=== PATIENT | female | born 1985 | race Two or more races ===

== ENCOUNTER 2016-10-02 08:35 | Emergency (ER) | payer MEDICAID, OTHER ==
[2016-10-02 08:50] VITALS: RESP 18; TEMP 97.7
--- NOTE | 2016-10-02 08:56 | EDPHY ---
H & P Time Seen by Provider: 10/02/16 08:46 HPI/ROS: CHIEF COMPLAINT: Diarrhea History by patient HISTORY OF PRESENT ILLNESS: 31-year-old woman who is otherwise healthy presents with 1 day of copious, watery diarrhea with crampy abdominal pain associated with each episode of diarrhea. Diarrhea is nonbloody. She is going approximately 10 times a day. She has not taken anything for it at home. She was able to drink coffee this morning but that seemed to make things worse and went right through her. She is not having any nausea or vomiting or fever. She is able to eat and drink. She cannot identify any new or unusual foods. She did home yesterday. No one else in the house is sick. Denies any back pain. She denies any rash. REVIEW OF SYSTEMS: As in HPI, and all other systems reviewed and are negative Smoking Status: Never smoked Physical Exam: General Appearance: Alert, nontoxic-appearing. Eyes: Pupils equal and round no pallor or injection. ENT, Mouth: Mucous membranes moist. Respiratory: Normal, effort, There are no retractions, lungs are clear to auscultation. Cardiovascular: Regular rate and rhythm. Gastrointestinal: Abdomen is soft and nontender, no masses, bowel sounds normal. Neurological: Awake, alert and oriented x 3, no pronator drift, normal gait, no pronator drift Skin: Warm and dry, no rashes. Musculoskeletal: Neck is supple nontender. Extremities are symmetrical, full range of motion. Psychiatric: Patient has normal affect, there is no agitation. Constitutional: Initial Vital Signs Temperature (C) 36.5 C 10/02/16 08:47 Heart Rate 77 10/02/16 08:47 Respiratory Rate 18 10/02/16 08:47 Blood Pressure 100/75 10/02/16 08:47 O2 Sat (%) 95 10/02/16 08:47 O2 Delivery Mode Room Air Allergies/Adverse Reactions: No Known Allergies Allergy (Verified 10/02/16 08:46) Home Medications: Medication Instructions Recorded NK [No Known Home Meds] 10/02/16 MDM/Departure - MDM ED Course/Re-evaluation: 31-year-old woman presents with 1 day of watery diarrhea and crampy abdominal pain. Patient is eating and drinking and there is no evidence of clinical dehydration and she is hemodynamically stable. We discussed conservative measures and home care including fluids with associated salt and sugar and Imodium as needed for symptoms. We discussed return precautions. - Depart Disposition: Home, Routine, Self-Care Clinical Impression: Diarrhea Qualifiers: Diarrhea type: unspecified type Qualified Code(s): R19.7 - Diarrhea, unspecified Condition: Good Instructions: Acute Diarrhea (ED), Loperamide (By mouth) Additional Instructions: You were seen by Dr. Estephania De Leon today. Make sure to drink plenty of fluids. It is okay if you do not need for a day or 2. Try taking [id number] loperamide (Imodium) for the diarrhea and cramping. Return for any worsening or new concerns. Stand Alone Forms: Work Excuse Referrals: ARIELLE FORMAN,. [Primary Care Provider] - As per Instructions
[2016-10-02 09:03] VITALS: BP 111/67; PULSE 71; O2SAT 96
== END 2016-10-02 09:05 | disposition home or self-care (01) ==
LOC: CED 08:35
DX: R19.7 Diarrhea, unspecified (principal); R10.9 Unspecified abdominal pain